=== PATIENT | male | born 2005 | race Two or more races ===

== ENCOUNTER 2024-12-30 16:30 | Emergency (ER) | payer OTHER ==
[~2024-12-30] VITALS: Ht 177.8 cm; Wt 63.5 kg
[2024-12-30] MEDS ORDERED: NORFLEX100MG PO (18:38)
[2024-12-30] MEDS ORDERED: IBUPROFEN600 MG PO (18:38)
[2024-12-30] MEDS ORDERED: KETOROLAC TROMETHAMINE 60 MG VIAL IM ONE (18:45)
[2024-12-30] MEDS ORDERED: ORPHENADRINE CITRATE 30 MG/ML AMPUL IM ONE (18:45)
== END 2024-12-30 19:07 | disposition home or self-care (01) ==
LOC: ER 16:30
DX: S30.1XXA Contusion of abdominal wall, initial encounter (principal); V47.5XXA Car driver injured in collision with fixed or stationary object in traffic accident, initial encounter; Y93.89 Activity, other specified; Y92.89 Other specified places as the place of occurrence of the external cause; Y99.8 Other external cause status; Z91.013 Allergy to seafood; Z91.018 Allergy to other foods

== ENCOUNTER 2025-02-18 10:08 | Emergency (ER) | payer OTHER ==
[~2025-02-18] VITALS: Ht 177.8 cm; Wt 62.6 kg
[~2025-02-18 10:08] MED LIST: IBUPROFEN600 MG PO; NORFLEX100MG PO
== END 2025-02-18 12:37 | disposition home or self-care (01) ==
LOC: ER 10:08
DX: B07.9 Viral wart, unspecified (principal); Z91.018 Allergy to other foods; Z91.013 Allergy to seafood